=== PATIENT | male | born 1960 | race Caucasian/White ===

== ENCOUNTER → 2016-12-14 | Outpatient (CLI) | payer BC, OTHER ==
--- NOTE | 2016-12-14 09:22 | Diagnostic Imaging Report ---
Ultrasound of the liver. INDICATION: Chronic hepatitis C. FINDINGS: The pancreas appear unremarkable. The liver has a mildly nodular contour suggestive of a cirrhosis with no focal mass. The gallbladder demonstrates a 1.5 cm stone that appears lodged in the gallbladder neck. There is mild gallbladder wall thickening at 4 mm without pericholecystic fluid. Sonographic Blake sign is reportedly negative. The CBD is 3 mm in caliber. The right kidney is 11.7 cm in length with no hydronephrosis or focal lesion. No ascites. IMPRESSION: 1. Mild nodularity in the liver contour may relate to early cirrhosis. No focal hepatic lesion. 2. Prominent gallbladder neck stone with gallbladder wall thickening suggestive of chronic cholecystitis. Dictated by: Dictated on workstation # [id number]
== END ==
LOC: RAD 07:37
PROVIDERS: ATTEND Nurse Practitioner Family
DX: B18.2 Chronic viral hepatitis C (principal)
CPT/HCPCS: 76705